=== PATIENT | female | born 1965 | race Caucasian/White ===

== ENCOUNTER → 2016-08-16 | Outpatient (CLI) | payer OTHER ==
[~2016-08-16] MED LIST: ASPI-390 PO; IBUP-103 PO; LEVO50TA PO; LISD20CA PO; OXYC-57 PO; vitamin b12 IM
[2016-08-16 11:07] LABS: PROGESTERONE 0.75 ng/mL; TESTOSTERONE,TOTAL 30.55 ng/dl (14-76)
== END | disposition home or self-care (01) ==
LOC: C.LABBC 08:17
PROVIDERS: ATTEND Family Medicine
DX: E28.9 Ovarian dysfunction, unspecified (principal)

== ENCOUNTER → 2016-08-16 | Outpatient (CLI) | payer OTHER | END | disposition home or self-care (01) | LOC: C.LABBC 08:20 | PROVIDERS: ATTEND Internal Medicine Gastroenterology | DX: E83.119 Hemochromatosis, unspecified (principal) ==

== ENCOUNTER → 2017-04-08 | Outpatient (CLI) | payer OTHER ==
[~2017-04-08] MED LIST changes: +MethylPREDNISolone HOME PACK 16 MG TAB PO SCH
--- NOTE | 2017-04-08 13:20 | DIAGNOSTIC IMAGING REPORT ---
A-PORT CHECK CLINICAL HISTORY: MALFUNCTIONING PORT COMPARISON STUDY: No previous studies for comparison. FINDINGS: The patient's right-sided A-Port catheter was accessed by the radiology nurse. 42 seconds of fluoroscopic time was utilized. Optiray 300 was hand injected through the catheter. The catheter was patent. Contrast appears to flow around a very small fibrin sheath at the catheter tip. IMPRESSION: 1. The right-sided A-Port catheter is located within the superior vena cava 2. The catheter is patent 3. There is a small fibrin sheath at the level of the catheter tip Electronically signed by: Atul Vera M.D. 04/08/2017 1:19 PM Dictated Date/Time: 04/08/2017 1:16 PM
== END | disposition home or self-care (01) ==
LOC: C.RAD 04-07 08:35
PROVIDERS: ATTEND Nurse Practitioner Family
DX: E83.119 Hemochromatosis, unspecified (principal); T82.598A Other mechanical complication of other cardiac and vascular devices and implants, initial encounter; X58.XXXA Exposure to other specified factors, initial encounter

== ENCOUNTER 2017-04-22 07:37 | Day surgery (SDC) | payer OTHER ==
[~2017-04-22] VITALS: Ht 161.3 cm; Wt 63.6 kg
--- NOTE | 2017-04-22 06:04 | History and Physical ---
History & Physical Date of Service Apr 22, 2017. History & Physical CC: Non functioning infusaport, hemochormatosis HPI: Ms. Yates had a port placed last year which is not functioning due to a fibrin sheath. She is here for removal of the port. She denies other complaints at this time including headaches, fevers, chills, dizziness, chest pain, shortness of breath, abdominal pain, nausea, vomiting, diarrhea, constipation, dysuria, hematuria, rest pain, claudication, nonhealing wounds or ulcers, or other complaints. ALLERGIES: CT CONTRAST, WHICH HER REACTION WAS VOMITING. HOME MEDICATIONS: Reconciled on the chart and include Synthroid and vitamin B12. PAST MEDICAL HISTORY: Positive for hemochromatosis, hypothyroidism, as well as sigmoid cancer. PAST SURGICAL HISTORY: Her surgical history is positive for EGD, delivery x3, cholecystectomy, and colon resection and colostomy and ostomy reversal. FAMILY HISTORY: Positive for hypertension and skin cancer in her mother, prostate cancer, skin cancer, and stroke in her father. SOCIAL HISTORY: Negative for tobacco, alcohol or drug use. She is an active female now participating in regular [employer] classes. REVIEW OF SYSTEMS: Negative for fatigue, fevers, sweats, weight loss, exercise intolerance, abnormal moles or rashes, vision changes or photophobia, ear pain, sinus problems or sore throat, cough, shortness of breath, hemoptysis or wheezing, chest pain, palpitations, or syncope. She does admit some lymphedema of her right lower extremity which is chronic from her radiation. She denies abdominal pain, nausea, vomiting, diarrhea, constipation, dysuria, hematuria, muscle weakness, headaches, dizziness, numbness, or seizures. PHYSICAL EXAMINATION: Her vital signs were as follows: Blood pressure 124/78 in her left arm, 118/80 in her right arm, heart rate of 68, and oxygen 99% on room air. The patient is 161 cm tall and weighs 63 kilograms. Constitutional: In general, the patient is a healthy-appearing, for age, well-nourished, well- developed middle-aged female in no acute distress. She ambulates without assistance and is active, alert, and oriented x4 with normal recent and remote memory is normocephalic, atraumatic. Eyes are EOMI. Her ENMT exam demonstrates no hearing loss, rhinorrhea, or pharyngeal erythema. Neck is supple, nontender with midline trachea without masses or crepitus. Lung exam demonstrates no dyspnea, they are clear to auscultation bilaterally. Her cardiovascular exam demonstrates nondisplaced apical impulse with a regular rate and rhythm without murmurs, lifts, heaves, thrills, or gallops. Peripheral pulses full and equal in all extremities unless otherwise noted, specifically they are normal in her carotid, brachial, radial, femoral, posterior tibial, and dorsalis pedis pulses. The patient demonstrates no bruits in her carotid, abdominal, or femoral area. Her abdomen is soft and nontender with normoactive bowel sounds in all 4 quadrants without guarding or rebound. There is no flank or CVA tenderness. Her musculoskeletal exam demonstrates normal tone and strength for age. Bilateral upper extremities demonstrate no cyanosis, edema, clubbing, varicosities, or ulcers. She does have veins with palpable scarring of the bilateral lower extremities and in her right lower extremity does demonstrate +1 edema consistent with her history of lymphedema, her left demonstrates no edema. She has had no varicosities or ulcerations. Neurologically, patient is grossly intact cranial nerves and grossly intact sensation. ASSESSMENT AND PLAN: Imp: Hemochromatosis Non functioning port Plan: Patient is admitted at this time for removal of the infusaport. I have discussed the risks options and benefits of the procedure with the patient. The patient understands the risks options and benefits and agrees to the procedure.
[~2017-04-22 07:37] MED LIST changes: +CEFAZOLIN 1000MG/55 ML D5W IV SCH; -IBUP-103 PO; -MethylPREDNISolone HOME PACK 16 MG TAB PO SCH; -OXYC-57 PO; +SODIUM CHLORIDE 0.9% 1000ML IV SCH
[2017-04-22 08:03] VITALS: BP 93/71; PULSE 65; TEMP 36.8; O2SAT 99; Ht 161.3 cm; Wt 63.6 kg
--- NOTE | 2017-04-22 08:08 | History & Physical Bridge Note ---
H&P Re-Evaluation Bridge Note: I have examined the patient, reviewed the History & Physical and in the interval since the performance of the History & Physical I have noted the following changes of clinical significance: No changes noted
--- NOTE | 2017-04-22 08:08 | Procedure Note ---
Pre-Mod Sedation Assessment General Date of Moderate Sedation: Apr 22, 2017. Pre-Sedation Airway Assessment Mallampati Classification: Class I ASA Classification: Class II Notes The planned sedation has been discussed with the patient and consent obtained. I have identified the patient, determined the appropriateness of sedation and have assessed the patient immediately prior to the procedure. All medicine(s) and interventions are by my order.
[2017-04-22] MEDS ORDERED: IBUP-103 PO (08:35)
[2017-04-22] MEDS ORDERED: FENTANYL CITRATE INJ 50 MCG/1 ML 2 ML VIAL ONE (08:45)
[2017-04-22] MEDS ORDERED: LIDOCAINE HCL 1% 20 ML VIAL ONE (08:45)
[2017-04-22] MEDS ORDERED: MIDAZOLAM HCL 1 MG/ML 2ML VIAL ONE (08:45)
[2017-04-22 08:49] VITALS: BP 93/71; TEMP 36.8; O2SAT 99
[2017-04-22] MEDS ORDERED: FENTANYL CITRATE INJ 50 MCG/1 ML 2 ML VIAL IV ONE (09:13)
[2017-04-22] MEDS ORDERED: MIDAZOLAM HCL 1 MG/ML 2ML VIAL IV ONE (09:13)
[2017-04-22] MEDS ORDERED: OXYCODONE/ACETAMINOPHEN 5-325 TAB PO PRN (09:15)
[2017-04-22] MEDS ORDERED: LIDOCAINE HCL 1% 20 ML VIAL INJ ONE (09:18)
[2017-04-22] MEDS ORDERED: OXYC-57 PO (09:26)
--- NOTE | 2017-04-22 09:40 | Procedure Note ---
Post-Moderate Sedation Plan General Date of Moderate Sedation Apr 22, 2017. Vital Signs: Vital Signs Past 12 Hours Date Time Temp Pulse Resp B/P (MAP) Pulse Ox O2 Delivery O2 Flow Rate FiO2 04/22/17 08:03 36.8 65 18 93/71 (78) 99 Review - Discharge Plan Post Moderate Sedation Plan: On clinical assessment, the patient appears to have tolerated the conscious sedation without complications. Patient is recovering as anticipated. Patient will continue to be monitored by nursing and may be discharged when conscious sedation discharge criteria are met.
--- NOTE | 2017-04-22 09:41 | [facility] Post Operative Brief Note ---
Immediate Operative Summary Operative Date Apr 22, 2017. Pre-Operative Diagnosis malfunctioning aport Post-Operative Diagnosis same Procedure(s) Performed Removal Of Aport, Moderate Concious Sedation [address] Jensen Lead Loader Surgeon(s) Frances Palmer Fellow Estimated Blood Loss 7 Findings catheter and port removed Specimens A. Explanted Aport Anesthesia Local with sedation Complication(s) None Disposition
--- NOTE | 2017-04-22 09:42 | Discharge Instructions ---
Discharge Instructions Date of Service Apr 22, 2017. Visit Reason for Visit: Malfunctioning Infusaport Discharge Discharge Diagnosis / Problem: Malfunctioning infusaport Discharge Goals Goal(s): Therapeutic intervention Activity Recommendations Activity Limitations: per Instructions/Follow-up section Shower/Bathe: tomorrow Anesthesia . Post Anesthesia Instructions: If you have had General Anesthesia or IV Sedation: * Do not drive today. * Resume driving when surgeon permits. * Do not make important decisions or sign legal documents today. * Call surgeon for: 1. Temperature elevations greater than 101 degrees F. 2. Uncontrollable pain. 3. Excessive bleeding. 4. Persistent nausea and vomiting. 5. Medication intolerance (nausea, vomiting or rash). * For nausea and vomiting use only clear liquids such as: tea, soda, bouillon until nausea subsides, then gradually increase diet as tolerated. * If you have any concerns or questions, call your surgeon's office. If physician is unavailable and it is an emergency, call 911 or go to the nearest emergency room. . Instructions / Follow-Up Instructions / Follow-Up Call [phone] to schedule a follow up appointment if one not already scheduled. ACTIVITY RECOMMENDATIONS: See Above SPECIAL CARE INSTRUCTIONS: Call your doctor if: * Temperature above 101 degrees * Pain not relieved by pain medicine ordered * There is increased drainage or redness from any incision * You have any unanswered questions or concerns. Diet Recommendations Recommended Home Diet: resume previous diet Procedures Procedures Performed: Removal Of Aport, Moderate Concious Sedation 0913 to 0939 Pending Studies Studies pending at discharge: no Medical Emergencies . Who to Call and When: Medical Emergencies: If at any time you feel your situation is an emergency, please call 911 immediately. . Non-Emergent Contact Non-Emergency issues call your: Surgeon . . "Provider Documentation" section prepared by Ramiro Jensen. .
--- NOTE | 2017-04-22 09:49 | [facility] Operative Report ---
Operative Report Operative Date Apr 22, 2017. Pre-Operative Diagnosis malfunctioning aport Post-Operative Diagnosis same Procedure(s) Performed Removal Of Aport, Moderate Concious Sedation [address] Jensen Electric Cell Tender Surgeon(s) Frances Palmer Fellow Estimated Blood Loss 7 Findings Aport and catheter removed Specimens A. Explanted Aport Anesthesia Local with sedation Complication(s) None Disposition Recovery Room / PACU Indications 52 y/o female with hemochromatosis with malfunctioning Aport due to fibrin sheath. Advised of the risk and benefits of port removal and agreed to above procedure Description of Procedure Patient was taken to the angio suite and placed in the supine position. The right side of the neck and chest wall were prepped and draped in a sterile manner. Local anesthesia was then administered to the appropriate areas of the neck and chest wall. An elliptical incision was made below the clavicle on the chest wall around the line of the old incision. The old scar was removed with sharp dissection. Bleeding was controlled using cautery. Using sharp and blunt dissection the port and fibrin sheath were dissected free and removed. The catheter slid out easily. Adequate hemostasis was then obtained. Once adequate hemostasis was noted the wound was then closed. The incision was closed using a 3-0 Vicryl suture for the subcutaneous layer and a 4-0 Vicryl subcuticular stitch for the skin layer. Dermabond was used for a dressing on the incision. Pressure was applied to the catheter site over the internal jugular vein. The patient left the angio suite in good condition and tolerated the procedure well. I attest to the content of the Intraoperative Record and any orders documented therein. Any exceptions are noted below.
[2017-04-22 09:51] VITALS: BP 103/65; PULSE 61; TEMP 36.7; O2SAT 100
[2017-04-22 10:27] VITALS: BP 108/66; PULSE 60; TEMP 36.7; O2SAT 99
== END 2017-04-22 10:30 | disposition home or self-care (01) ==
LOC: C.ACU 07:37
PROVIDERS: ATTEND Surgery Vascular Surgery
DX: T82.594A Other mechanical complication of infusion catheter, initial encounter (principal); X58.XXXA Exposure to other specified factors, initial encounter; E03.9 Hypothyroidism, unspecified; E83.119 Hemochromatosis, unspecified; Z85.038 Personal history of other malignant neoplasm of large intestine; Z79.899 Other long term (current) drug therapy

== ENCOUNTER → 2017-07-27 | Outpatient (CLI) | payer OTHER ==
[~2017-07-27] MED LIST changes: -CEFAZOLIN 1000MG/55 ML D5W IV SCH; +IBUP-103 PO; +MAGN400T6 PO; +OXYC-57 PO; -SODIUM CHLORIDE 0.9% 1000ML IV SCH; +TUMERIC PO
== END | disposition home or self-care (01) ==
LOC: C.LAB1850 07:41
PROVIDERS: ATTEND Family Medicine
DX: E03.9 Hypothyroidism, unspecified (principal)

== ENCOUNTER → 2017-10-03 | Outpatient (CLI) | payer BC ==
[~2017-10-03] MED LIST changes: -MAGN400T6 PO; -TUMERIC PO
== END | disposition home or self-care (01) ==
LOC: C.PAPS 12:04
PROVIDERS: ATTEND Obstetrics & Gynecology
DX: Z01.419 Encounter for gynecological examination (general) (routine) without abnormal findings (principal)

== ENCOUNTER → 2017-11-09 | Outpatient (CLI) | payer OTHER ==
[~2017-11-09] MED LIST changes: -LISD20CA PO; +MAGN400T6 PO; -OXYC-57 PO; +TUMERIC PO
--- NOTE | 2017-11-09 15:13 | MAMMOGRAPHY REPORT ---
BILATERAL DIGITAL SCREENING MAMMOGRAM TOMOSYNTHESIS WITH CAD: 11/09/2017 CLINICAL HISTORY: Routine screening. Patient has no complaints. TECHNIQUE: Breast tomosynthesis in addition to standard 2D mammography was performed. Current study was also evaluated with a Computer Aided Detection (CAD) system. COMPARISON: Comparison is made to exams dated: 10/10/2013 mammogram, 06/10/2010 mammogram - [facility], and 04/23/2008. BREAST COMPOSITION: The tissue of both breasts is heterogeneously dense, which may obscure small mas ses. FINDINGS: There are scattered, stable round calcifications in both breasts. No suspicious mass, arch itectural distortion or cluster of microcalcifications is seen. IMPRESSION: ACR BI-RADS CATEGORY 1: NEGATIVE There is no mammographic evidence of malignancy. A 1 year screening mammogram is recommended. The pa tient will receive written notification of the results. Approximately 10% of breast cancers are not detected with mammography. A negative mammographic report should not delay biopsy if a clinically suggestive mass is present. Luz Marina Rice M.D. ay/:11/09/2017 14:42:28 Computer Systems Analyst: Maxine SANCHEZ(Imtiaz)(Kasey), [facility] letter sent: Normal 1/2 BI-RADS Code: ACR BI-RADS Category 1: Negative
== END | disposition home or self-care (01) ==
LOC: C.MAMM 10:52
PROVIDERS: ATTEND Obstetrics & Gynecology
DX: Z12.31 Encounter for screening mammogram for malignant neoplasm of breast (principal)

== ENCOUNTER → 2017-11-30 | Outpatient (CLI) | payer OTHER ==
[~2017-11-30] MED LIST changes: +OPTIRAY 320 IV PRN
--- NOTE | 2017-11-30 15:01 | DIAGNOSTIC IMAGING REPORT ---
ABDOMEN AND PELVIS CT WITH IV AND ORAL CONTRAST CT DOSE: 469.65 mGycm HISTORY: Generalized abdominal pain, DIARRHEA, HX COLON CA TECHNIQUE: Multiaxial CT images of the abdomen and pelvis were performed following the use of intravenous and oral contrast. A dose lowering technique was utilized adhering to the principles of ALARA. COMPARISON STUDY: Abdomen and pelvis CT 02/28/2008. FINDINGS: The lung bases are clear. No pneumoperitoneum. No pneumatosis. No suspicious lytic or blastic osseous lesions. Cholecystectomy. The liver, pancreas, adrenal glands, and spleen are unremarkable. The kidneys enhance normally. There is mild fullness within the bilateral renal collecting systems without basilia hydronephrosis. The bladder, uterus, and right ovary are unremarkable. There is a 2.4 cm left ovarian cyst. No pelvic free fluid. Evidence for prior midline incision. No retroperitoneal or pelvic lymphadenopathy. No bowel wall thickening or obstruction. Moderate to large amount of stool seen throughout the colon. Surgical clips seen within the right side of the abdomen suggesting prior partial right hemicolectomy. Therefore, the appendix is likely surgically absent as it is not identified on this study. IMPRESSION: 1. No bowel wall thickening or obstruction. 2. Moderate to large amount of stool seen throughout the colon. 3. Postoperative changes as described above. 4. Mild fullness within the bilateral renal collecting systems without basilia hydronephrosis. 5. A 2.4 cm left ovarian cyst. This could be pathologic in a postmenopausal female. Follow-up pelvic ultrasound in 3 months is recommended to ensure resolution. Electronically signed by: Bautista Fowler M.D. 11/30/2017 3:00 PM Dictated Date/Time: 11/30/2017 2:50 PM
== END | disposition home or self-care (01) ==
LOC: C.CTS 14:05
PROVIDERS: ATTEND Family Medicine
DX: R10.9 Unspecified abdominal pain (principal); Z85.038 Personal history of other malignant neoplasm of large intestine; R19.7 Diarrhea, unspecified